=== PATIENT | female | born 1975 | race American Indian/Alaskan Native ===

== ENCOUNTER 2016-06-09 12:53 | Emergency (ER) | payer BC ==
[2016-06-09 13:37] LABS: Basophils % (Auto) 0.7 % (0.0-1.8); Eosinophils % (Auto) 1.1 % (0.0-4.3); Hematocrit 37.7 % (30.3-42.9); Hemoglobin 12.4 gm/dl (10.1-14.3); Mean Corpuscular HGB Conc 33 % (30-34); Mean Corpuscular Hemoglobin 30 pg (28-32); Mean Corpuscular Volume 91 fl (79-97); Platelet Count 220 K/mm3 (140-440); Red Blood Count 4.15 M/mm3 (3.65-5.03); Red Cell Distribution Width 12.7 % (13.2-15.2); White Blood Count 7.4 K/mm3 (4.5-11.0)
[2016-06-09 13:43] LABS: Anion Gap 17 mmol/L; BUN/Creatinine Ratio 18.33; Blood Urea Nitrogen 11 mg/dL (7-17); Calcium 9.2 mg/dL (8.4-10.2); Carbon Dioxide 24 mmol/L (22-30); Chloride 102.7 mmol/L (98-107); Glucose 106 mg/dL (65-100); Potassium 3.7 mmol/L (3.6-5.0); Sodium 140 mmol/L (137-145)
--- NOTE | 2016-06-09 17:26 | Emergency Department Report ---
ED General Adult HPI - General Chief complaint: Dizziness Stated complaint: LIGHT HEADED/DIZZINESS Time Seen by Provider: 06/09/16 17:14 Source: patient, RN notes reviewed Mode of arrival: Ambulatory Limitations: No Limitations - History of Present Illness Initial comments: This is a 41-year-old female. She is previously unknown to me. Primary care doctor is Dr. Martin. Denies past medical history. Last menstrual period is currently. The patient presents to the ER with lightheadedness. The lightheadedness started this morning. It is painless. There is no loss of consciousness. There is no chest pain or shortness of breath. There is no extremity weakness. There is no Numbness. There is no tinnitus. There is no vertigo. There is no leg pain. There is no leg swelling. No recent trips greater than 4 hours. No recent hospital admissions. The patient describes UNlimited exercise tolerance. She indicates that the lightheadedness has mostly resolved at this time. -: Gradual Consistency: now resolved Improves with: none Worsens with: none Associated Symptoms: denies other symptoms. denies: confusion, chest pain, cough, diaphoresis, fever/chills, headaches, loss of appetite, malaise, nausea/ vomiting, rash, seizure, shortness of breath, syncope, weakness - Related Data Home Medications Medication Instructions Recorded Confirmed Last Taken Tetrahydrozoline HCl/Zn Sulf 1 drop OP PRN PRN 06/09/16 06/09/16 Unknown [Visine Allergy Relief Drop] Vitamin B Complex [Natural B-100] 1 tab PO QDAY 06/09/16 06/09/16 06/08/16 Allergies Allergy/AdvReac Type Severity Reaction Status Date / Time No Known Allergies Allergy Unverified 06/09/16 13:12 ED Review of Systems ROS: Stated complaint: LIGHT HEADED/DIZZINESS Other details as noted in HPI Constitutional: denies: fever, malaise Eyes: denies: eye discharge, vision change ENT: denies: epistaxis, congestion Respiratory: denies: shortness of breath Cardiovascular: denies: syncope Gastrointestinal: denies: abdominal pain Genitourinary: denies: dysuria Musculoskeletal: denies: back pain Skin: denies: lesions Neurological: denies: weakness Psychiatric: denies: anxiety ED Past Medical Hx - Past Medical History Previous Medical History?: No - Surgical History Past Surgical History?: No - Social History Smoking Status: Never Smoker Substance Use Type: None - Medications Home Medications: Home Medications Medication Instructions Recorded Confirmed Last Taken Type Tetrahydrozoline HCl/Zn Sulf 1 drop OP PRN PRN 06/09/16 06/09/16 Unknown History [Visine Allergy Relief Drop] Vitamin B Complex [Natural B-100] 1 tab PO QDAY 06/09/16 06/09/16 06/08/16 History ED Physical Exam - General Limitations: No Limitations General appearance: alert, in no apparent distress - Head Head exam: Present: atraumatic, normocephalic - Eye Eye exam: Present: normal appearance, PERRL, EOMI, other (visual acuity intact to finger counting, color perception, reading at a close distance). Absent: nystagmus - ENT ENT exam: Present: normal exam, normal orophraynx, mucous membranes moist, TM's normal bilaterally, normal external ear exam - Neck Neck exam: Present: normal inspection, full ROM. Absent: tenderness, meningismus - Respiratory Respiratory exam: Present: normal lung sounds bilaterally. Absent: respiratory distress, wheezes, rales, rhonchi, stridor, chest wall tenderness, accessory muscle use, decreased breath sounds, prolonged expiratory - Cardiovascular Cardiovascular Exam: Present: regular rate, normal rhythm, systolic murmur ( there is a 2/6 systolic murmur heard best at the right and left second intercostal spaces. It does not radiate to the carotids.). Absent: bradycardia , tachycardia, irregular rhythm, diastolic murmur, rubs, gallop - GI/Abdominal GI/Abdominal exam: Present: soft, normal bowel sounds. Absent: distended, tenderness, guarding, rebound, rigid, pulsatile mass - Extremities Exam Extremities exam: Present: normal inspection, full ROM, normal capillary refill. Absent: tenderness, pedal edema, joint swelling, calf tenderness - Back Exam Back exam: Present: normal inspection, full ROM. Absent: tenderness, CVA tenderness (R), CVA tenderness (L), muscle spasm, paraspinal tenderness, vertebral tenderness - Neurological Exam Neurological exam: Present: alert, oriented X3, normal gait (NORMAL GAIT. nORMAL TANDEM GAIT. nEGATIVE PRONATOR DRIFT. nORMAL [id number]. nEGATIVE PASS POINTING. nEGATIVE rOMBERG EXAMINATION), other (Extraocular movements intact. Tongue midline. No facial droop. Facial sensation intact to light touch in the V1, V2, V3 distribution bilaterally. 5 and 5 strength in 4 extremities.. Sensation is intact to light touch in 4 extremities.). Absent: motor sensory deficit - Psychiatric Psychiatric exam: Present: normal affect, normal mood - Skin Skin exam: Present: warm, dry, intact, normal color. Absent: rash ED Course Vital Signs 06/09/16 06/09/16 06/09/16 13:12 15:55 15:56 Temperature 98.4 F Pulse Rate 75 72 74 Respiratory 18 17 26 H Rate Blood Pressure 175/91 O2 Sat by Pulse 100 Oximetry 06/09/16 06/09/16 06/09/16 15:57 16:00 16:11 Temperature Pulse Rate 73 78 Respiratory 27 H 26 H 20 Rate Blood Pressure 146/61 154/71 O2 Sat by Pulse 100 100 100 Oximetry 06/09/16 06/09/16 06/09/16 16:30 17:00 17:38 Temperature Pulse Rate 75 86 Respiratory 23 18 Rate Blood Pressure 154/71 151/69 151/69 O2 Sat by Pulse 99 100 87 Oximetry 06/09/16 06/09/16 18:00 18:30 Temperature Pulse Rate 64 71 Respiratory 12 10 L Rate Blood Pressure 131/69 151/69 O2 Sat by Pulse 99 Oximetry - Reevaluation(s) Reevaluation #1: 06/09/16 18:43 Differential diagnosis: Orthostasis, arrhythmia, structural cardiac disease, transient hypoglycemia, Assessment and plan: 41-year-old female with nonspecific lightheadedness. She is afebrile with reassuring vital signs, has no headache or neck pain, has a GCS of 15, NIH score of 0, walks with a steady gait, has an ABCD 2 score of 0 , no pulmonary embolus or DVT risk factors, low risk by well's criteria, low risk by DAVID score, low risk by heart score, PERC negative, with completely normal neurologic examination. Incidentally noted to have a systolic murmur. Laboratory studies were unremarkable. Orthostatic vital signs unremarkable. The patient is found to be not . EKG unremarkable. The patient is to follow-up in outpatient primary care doctor or consultant nurse for further outpatient evaluation. At this point in time , given the objective medical information, does not appear that there is any emergent condition. ED Medical Decision Making - Lab Data Result diagrams: 06/09/16 13:19 06/09/16 13:19 Vital Signs 06/09/16 06/09/16 06/09/16 13:12 15:55 15:56 Temperature 98.4 F Pulse Rate 75 72 74 Respiratory 18 17 26 H Rate Blood Pressure 175/91 O2 Sat by Pulse 100 Oximetry 06/09/16 06/09/16 06/09/16 15:57 16:00 16:11 Temperature Pulse Rate 73 78 Respiratory 27 H 26 H 20 Rate Blood Pressure 146/61 154/71 O2 Sat by Pulse 100 100 100 Oximetry 06/09/16 06/09/16 06/09/16 16:30 17:00 17:38 Temperature Pulse Rate 75 86 Respiratory 23 18 Rate Blood Pressure 154/71 151/69 151/69 O2 Sat by Pulse 99 100 87 Oximetry 06/09/16 06/09/16 18:00 18:30 Temperature Pulse Rate 64 71 Respiratory 12 10 L Rate Blood Pressure 131/69 151/69 O2 Sat by Pulse 99 Oximetry Lab Results 06/09/16 06/09/16 06/09/16 Range/Units 13:15 13:19 13:19 WBC 7.4 (4.5-11.0) K/mm3 RBC 4.15 (3.65-5.03) M/mm3 Hgb 12.4 (10.1-14.3) gm/dl Hct 37.7 (30.3-42.9) % MCV 91 (79-97) fl MCH 30 (28-32) pg MCHC 33 (30-34) % RDW 12.7 L (13.2-15.2) % Plt Count 220 (140-440) K/mm3 Lymph % (Auto) 12.2 L (13.4-35.0) % [place] % (Auto) 6.6 (0.0-7.3) % Eos % (Auto) 1.1 (0.0-4.3) % Baso % (Auto) 0.7 (0.0-1.8) % Lymph # 0.9 L (1.2-5.4) K/mm3 [place] # 0.5 (0.0-0.8) K/mm3 Eos # 0.1 (0.0-0.4) K/mm3 Baso # 0.1 (0.0-0.1) K/mm3 Seg Neutrophils % 79.4 H (40.0-70.0) % Seg Neutrophils # 5.9 (1.8-7.7) K/mm3 Sodium 140 (137-145) mmol/L Potassium 3.7 (3.6-5.0) mmol/L Chloride 102.7 (98-107) mmol/L Carbon Dioxide 24 (22-30) mmol/L Anion Gap 17 mmol/L BUN 11 (7-17) mg/dL Creatinine 0.6 L (0.7-1.2) mg/dL Estimated GFR > 60 ml/min BUN/Creatinine Ratio 18.33 % Glucose 106 H (65-100) mg/dL POC Glucose 107 H (70-105) Calcium 9.2 (8.4-10.2) mg/dL Urine HCG, Qual (Negative) 06/09/16 Range/Units 17:36 WBC (4.5-11.0) K/mm3 RBC (3.65-5.03) M/mm3 Hgb (10.1-14.3) gm/dl Hct (30.3-42.9) % MCV (79-97) fl MCH (28-32) pg MCHC (30-34) % RDW (13.2-15.2) % Plt Count (140-440) K/mm3 Lymph % (Auto) (13.4-35.0) % [place] % (Auto) (0.0-7.3) % Eos % (Auto) (0.0-4.3) % Baso % (Auto) (0.0-1.8) % Lymph # (1.2-5.4) K/mm3 [place] # (0.0-0.8) K/mm3 Eos # (0.0-0.4) K/mm3 Baso # (0.0-0.1) K/mm3 Seg Neutrophils % (40.0-70.0) % Seg Neutrophils # (1.8-7.7) K/mm3 Sodium (137-145) mmol/L Potassium (3.6-5.0) mmol/L Chloride (98-107) mmol/L Carbon Dioxide (22-30) mmol/L Anion Gap mmol/L BUN (7-17) mg/dL Creatinine (0.7-1.2) mg/dL Estimated GFR ml/min BUN/Creatinine Ratio % Glucose (65-100) mg/dL POC Glucose (70-105) Calcium (8.4-10.2) mg/dL Urine HCG, Qual Negative (Negative) - EKG Data -: EKG Interpreted by Me EKG shows normal: sinus rhythm, axis, intervals, QRS complexes, ST-T waves - EKG Data When compared to previous EKG there are: previous EKG unavailable Interpretation: normal EKG Critical care attestation.: If time is entered above; I have spent that time in minutes in the direct care of this critically ill patient, excluding procedure time. ED Disposition Clinical Impression: Lightheadedness Disposition: DISCHARGED TO HOME OR SELFCARE Is pt being admited?: No Does the pt Need Aspirin: No Condition: Stable Instructions: Near Syncope (ED) Additional Instructions: Laboratory studies were unremarkable. Physical examination was unremarkable with the exception of elevated blood pressure, and systolic heart murmur. I recommend that you follow up with her primary care doctor, or any illicit internal communications specialist within the next week. Return to the ER right away with fevers or chills, chest pain or shortness of breath, intractable nausea or vomiting, inability to tolerate liquid feeds. Please note that blood pressure was elevated, and this should be followed up by primary care doctor or internal communications specialist within the next 2 weeks. Long- term complications of hypertension/elevated blood pressure, stroke, heart attack , disability, , paralysis. Referrals: CARMEN EVANS MD [Primary Care Provider] - 3-5 Days DUANE TEJEDA MD [Staff Physician] - 3-5 Days LATOSHA MARIA MD [Staff Physician] - 3-5 Days
[2016-06-09 18:43] VITALS: BP 151/69
== END 2016-06-09 18:53 | disposition home or self-care (01) ==
LOC: ED 12:53
DX: R42 Dizziness and giddiness (principal)
CPT/HCPCS: 36415; 80048; 81025; 82962; 85025; 93005; 93010; 99283

== ENCOUNTER 2016-09-09 04:49 | Emergency (ER) | payer BC ==
[2016-09-09 05:39] LABS: Hemoglobin 11.1 gm/dl (10.1-14.3); Mean Corpuscular HGB Conc 33 % (30-34); Mean Corpuscular Hemoglobin 30 pg (28-32); Mean Corpuscular Volume 92 fl (79-97); Platelet Count 273 K/mm3 (140-440); White Blood Count 3.9 K/mm3 (4.5-11.0)
[2016-09-09 05:47] LABS: Bacteria,Urine 1+ /HPF (Negative); Bilirubin,Urine NEG (Negative); Blood,Urine LG (Negative); Ketones,Urine NEG (Negative); Leukocyte Esterase,Urine NEG (Negative); Nitrite,Urine NEG (Negative); Protein,Urine <15 mg/dL mg/dL (Negative); Urobilinogen,Urine < 2.0 mg/dL (<2.0)
[2016-09-09 05:51] LABS: RBC,Urine > 182.0 /HPF (0.0-6.0)
--- NOTE | 2016-09-09 08:50 | Emergency Department Report ---
ED Female HPI - General Chief complaint: Vaginal Bleeding Stated complaint: HEAVY VAGINAL BLEEDING Time Seen by Provider: 09/09/16 08:37 Source: patient Mode of arrival: Ambulatory Limitations: No Limitations - History of Present Illness Initial comments: Patient stated that she has been bleeding for the last 15 days. She stated that 's not normal for her.. Denied any abdominal pain. Complaint: vaginal bleeding -: Gradual - Related Data Sexually active: Yes Home Medications Medication Instructions Recorded Confirmed Last Taken Tetrahydrozoline HCl/Zn Sulf 1 drop OP PRN PRN 06/09/16 06/09/16 Unknown [Visine Allergy Relief Drop] Vitamin B Complex [Natural B-100] 1 tab PO QDAY 06/09/16 06/09/16 06/08/16 Previous Rx's Medication Instructions Recorded Last Taken Type medroxyPROGESTERone ACETATE 10 mg PO QDAY #10 tablet 09/09/16 Unknown Rx [Provera] Allergies Allergy/AdvReac Type Severity Reaction Status Date / Time No Known Allergies Allergy Unverified 06/09/16 13:12 ED Review of Systems ROS: Stated complaint: HEAVY VAGINAL BLEEDING Other details as noted in HPI Comment: All other systems reviewed and negative Constitutional: denies: chills, fever Respiratory: denies: cough, shortness of breath Cardiovascular: denies: chest pain, palpitations Gastrointestinal: denies: abdominal pain, nausea, vomiting, diarrhea, hematemesis Neurological: denies: headache, weakness, numbness, paresthesias ED Past Medical Hx - Past Medical History Previous Medical History?: Yes Hx Hypertension: Yes Additional medical history: anemia - Surgical History Past Surgical History?: No - Social History Smoking Status: Never Smoker Substance Use Type: None - Medications Home Medications: Home Medications Medication Instructions Recorded Confirmed Last Taken Type Tetrahydrozoline HCl/Zn Sulf 1 drop OP PRN PRN 06/09/16 06/09/16 Unknown History [Visine Allergy Relief Drop] Vitamin B Complex [Natural B-100] 1 tab PO QDAY 06/09/16 06/09/16 06/08/16 History medroxyPROGESTERone ACETATE 10 mg PO QDAY #10 tablet 09/09/16 Unknown Rx [Provera] ED Physical Exam - General Limitations: No Limitations General appearance: alert, in no apparent distress - Eye Eye exam: Present: normal appearance - ENT ENT exam: Present: normal exam - Neck Neck exam: Present: normal inspection - Respiratory Respiratory exam: Present: normal lung sounds bilaterally. Absent: respiratory distress, wheezes, chest wall tenderness - Cardiovascular Cardiovascular Exam: Present: regular rate, normal rhythm, normal heart sounds - GI/Abdominal GI/Abdominal exam: Present: soft. Absent: distended, tenderness, guarding, rebound, mass - External exam: Present: normal external exam - Back Exam Back exam: Present: normal inspection. Absent: CVA tenderness (R), CVA tenderness (L) - Neurological Exam Neurological exam: Present: alert, oriented X3, CN II-XII intact ED Course Vital Signs 09/09/16 09/09/16 09/09/16 04:50 07:38 07:40 Temperature 98.7 F Pulse Rate 78 Respiratory 18 Rate Blood Pressure 131/64 131/64 Blood Pressure 126/72 [Right] O2 Sat by Pulse 100 100 100 Oximetry 09/09/16 09/09/16 09/09/16 07:49 07:50 08:00 Temperature 98.4 F Pulse Rate 88 Respiratory 18 Rate Blood Pressure 131/64 123/65 Blood Pressure 131/64 [Right] O2 Sat by Pulse 100 99 98 Oximetry 09/09/16 09/09/16 08:10 08:22 Temperature Pulse Rate Respiratory Rate Blood Pressure 123/65 131/64 Blood Pressure [Right] O2 Sat by Pulse 100 Oximetry ED Medical Decision Making - Lab Data Result diagrams: 09/09/16 05:08 Critical care attestation.: If time is entered above; I have spent that time in minutes in the direct care of this critically ill patient, excluding procedure time. ED Disposition Clinical Impression: Vaginal bleeding, abnormal, Uterine fibroid Disposition: - TO HOME OR SELFCARE Is pt being admited?: No Condition: Stable Instructions: Uterine Fibroids (ED) Referrals: CARMEN EVANS MD [Primary Care Provider] - 3-5 Days
--- NOTE | 2016-09-09 10:52 | Ultrasound Report ---
TRANSABDOMINAL AND TRANSVAGINAL PELVIC ULTRASOUND: 09/09/16 04:49:00 CLINICAL: Excessive vaginal bleeding FINDINGS: Transabdominal and transvaginal pelvic ultrasound demonstrated a minimally enlarged fibroid uterus measuring 10.9 x 5.5 x 7.9 cm. The largest fibroid is located subserosal in the anterior fundus and measures 2.4 x 2.4 x 2.2 cm. An anterior intramural uterine body fibroid measures 1.9 x 2.0 x 1.8 cm. A second anterior uterine body subserosal fibroid measures 2.3 x 2.2 x 2.2 cm. A posterior lower uterine segment subserosal fibroid measures 5.6 x 4.6 x 5.3 cm. The endometrium is normal and measures 7.7 mm AP thickness. At least one anterior uterine fibroid extends to the endometrium. A right ovary is not identified. Large anechoic mass of the right adnexa measures 16.8 x 14.5 x 17.6 cm. Normal left ovary with a dominant 1.6 cm follicle. The left ovary measures 3.0 x 2.1 x 2.7 cm. No free fluid. Normal urinary bladder. IMPRESSION: 1. Uterine leiomyomata with a dominant lower uterine segment 5.6 cm fibroid. 2. Submucosal fibroids. 3. A. 17.6 cm right adnexal cyst which is likely a cystic neoplasm of the right ovary. 4. Normal left ovary.
[2016-09-09 12:15] VITALS: BP 140/89
== END 2016-09-09 11:30 | disposition home or self-care (01) ==
LOC: ED 04:49
DX: N93.8 Other specified abnormal uterine and vaginal bleeding (principal); D25.9 Leiomyoma of uterus, unspecified; I10 Essential (primary) hypertension; D64.9 Anemia, unspecified
CPT/HCPCS: 36415; 76830; 76856; 81001; 83690; 84702; 84703; 85025; 86850; 86900; 86901